=== PATIENT | male | born 1990 | race Two or more races ===

== ENCOUNTER 2019-07-04 18:42 | Emergency (ER) | payer OTHER ==
[~2019-07-04] VITALS: Ht 170.2 cm; Wt 72.6 kg
[2019-07-04 19:05] VITALS: BP 146/82
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
--- NOTE | 2019-07-04 19:40 | NUR ---
ED Nurse Note: Pt taken for Xray.
[2019-07-04] MEDS ORDERED: Methocarbamol 750mg tab ORAL ONE (19:45)
--- NOTE | 2019-07-04 20:01 | NUR ---
ED Nurse Note: Pt came back from Xray.
--- NOTE | 2019-07-04 21:13 | Diagnostic Imaging Report ---
INDICATION: Back pain TECHNIQUE: XRAY T Spine 2v, XRAY L Spine Ltd Multiple views of the lumbosacral and thoracic spine were obtained COMPARISON: None FINDINGS: Mild thoracic scoliosis, which may be positional. There are 5 lumbar type vertebral bodies. There is no acute fracture or listhesis. Intervertebral disc spaces are maintained. No acute soft tissue abnormality. Visualized lungs are clear. IMPRESSION: No acute fracture or malalignment. These findings are concordant with the [facility] preliminary report.
--- NOTE | 2019-07-04 21:18 | Diagnostic Imaging Report ---
INDICATION: Wrist pain TECHNIQUE: XRAY Wrist Complete L, Multiple views of the left wrist were obtained COMPARISON: None FINDINGS: There is no acute fracture or dislocation. Joint spaces are maintained. Mild soft tissue swelling around the wrist. IMPRESSION: No acute fracture or dislocation. These findings are concordant with the [facility] preliminary report.
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
[2019-07-04] MEDS ORDERED: ROBAXIN-750750 MG PO (21:44)
[2019-07-04] MEDS ORDERED: LIDODERM700 M1 TOPIC (21:44)
[2019-07-04] MEDS ORDERED: IBUPROFEN600 MG ORAL (21:44)
[2019-07-04 21:57] VITALS: BP 146/82
--- NOTE | 2019-07-04 21:57 | NUR ---
ED Nurse Note: Pt cleared by ERMD for discharge. DC instructions/prescription was given and explained to pt and verbalized understanding of teachings. All medical deviecs such as ID band removed. Pt is AAO x4, ambulatory and left with all personal belongings.
== END 2019-07-04 21:57 | disposition home or self-care (01) ==
LOC: EMR 19:38
DX: R51 Headache (principal); T14.8XXA Other injury of unspecified body region, initial encounter; M62.830 Muscle spasm of back; M25.532 Pain in left wrist; V43.52XA Car driver injured in collision with other type car in traffic accident, initial encounter; Y92.410 Unspecified street and highway as the place of occurrence of the external cause
CPT/HCPCS: 72020; 72070; 99284